=== PATIENT | female | born 1960 | race Caucasian/White ===

== ENCOUNTER 2019-02-17 09:09 | Emergency (ER) | payer MEDICARE ==
[~2019-02-17] VITALS: Ht 160 cm; Wt 52.2 kg
[2019-02-17 09:14] VITALS: BP 137/63
--- NOTE | 2019-02-17 09:24 | PHYS DOC ---
Adult General Chief Complaint Chief Complaint: WRIST PAIN [facility] HPI Patient is a 58 year old right-handed female who presents with complaining of right wrist injury. Patient states she slipped on the bathtub last night and landed on hyperextended right wrist patient denies other injuries and loss of consciousness and complaining of this pain with taking 2 ibuprofen last night. Patient complaining of painful range of motion of right wrist without focal neuro deficit and other injuries. Review of Systems Review of Systems Constitutional: Denies fever or chills [] Eyes: Denies change in visual acuity, redness, or eye pain [] HENT: Denies nasal congestion or sore throat [] Respiratory: Denies cough or shortness of breath [] Cardiovascular: No additional information not addressed in HPI [] GI: Denies abdominal pain, nausea, vomiting, bloody stools or diarrhea [] : Denies dysuria or hematuria [] Musculoskeletal: Denies back pain, reports joint pain [] Integument: Denies rash or skin lesions [] Neurologic: Denies headache, focal weakness or sensory changes [] Endocrine: Denies polyuria or polydipsia [] All other systems were reviewed and found to be within normal limits, except as documented in this note. Allergies Allergies Allergies Coded Allergies Type Severity Reaction Last Updated Verified acetaminophen Allergy Intermediate hives 02/17/19 Yes azithromycin Allergy Intermediate hives 02/17/19 Yes levofloxacin Allergy Intermediate hives 02/17/19 Yes oxycodone Allergy Intermediate [facility] 02/17/19 Yes Physical Exam Physical Exam Constitutional: Well developed, well nourished, mild distress, non-toxic appearance. [] HENT: Normocephalic, atraumatic. Eyes: PERRLA, EOMI, conjunctiva normal, no discharge. [] Neck: Normal range of motion, no tenderness, supple, no stridor. [] Cardiovascular:Heart rate regular rhythm, no murmur [] Lungs & Thorax: Bilateral breath sounds clear to auscultation [] Extremities: Right wrist with moderate edema and tenderness in the radial side with painful range of motion without neurovascular deficit. Neurologic: Alert and oriented X 3, no focal deficits noted. [] Psychologic: Affect normal, judgement normal, mood normal. [] Current Patient Data Vital Signs Vital Signs Date Time Temp Pulse Resp B/P (MAP) Pulse Ox O2 Delivery O2 Flow Rate FiO2 02/17/19 09:14 97.7 69 16 137/63 (87) 97 Room Air 97.7 EKG EKG [] Radiology/Procedures Radiology/Procedures [][facility] [address] [place] [address] IMAGING REPORT Signed PATIENT: ROBBIN BUTLER ACCOUNT: [id number] : 1960 LOCATION: ER AGE: 58 SEX: F EXAM STATUS: PRE ER ORD. PHYSICIAN: ROWAN JOSHI MD REASON: rt wrist pain, pt fell in bathtub last kiera PROCEDURE: WRIST 3V RIGHT EXAM: PA, oblique and lateral views of the right wrist DATE: 02/17/2019 9:21 AM INDICATION: Right wrist pain, fall COMPARISON: No Prior FINDINGS/ IMPRESSION: Transverse distal radial fracture with intra-articular component dorsally is mildly impacted with neutral radial tilt moderate associated soft tissue swelling, with bowing of the pronator fat pad. Decreased bone mineral density. Electronically signed by: Carlos Madden MD (02/17/2019 9:41 AM) [facility] DICTATED and SIGNED BY: CARLOS MADDEN MD DATE: 02/17/19940 Course & Med Decision Making Course & Med Decision Making Pertinent Imaging studies reviewed. (See chart for details) Evaluation of patient in ER showed 58-year-old female patient with a fall and distal radial fracture with extending to joint. Plan to have pain medication in ER. Patient had his sister cleaned and shoulder sling placement and was advised to follow-up with on-call physician for her orthopedic physician at her home [facility]. Dragon Disclaimer Dragon Disclaimer This electronic medical record was generated, in whole or in part, using a voice recognition dictation system. Departure Departure Impression: Primary Impression: Fracture of distal end of right radius Disposition: 01 HOME, SELF-CARE (at 1004) Condition: IMPROVED Referrals: LAURA NIELSON II, MD Patient Instructions: Radial Fracture Additional Instructions: Apply ice on the affected area Follow-up with orthopedic physician physician in 3-5 days Return to ER if not getting better Scripts Hydrocodone/Apap 5-325 (NORCO 5-325 TABLET) 1 Each Tablet 1 TAB PO PRN Q6HRS PRN for PAIN, #15 TAB 0 Refills Prov: ROWAN JOSHI MD 02/17/19 Problem Qualifiers Primary Impression: Fracture of distal end of right radius Encounter type: initial encounter Fracture type: closed Fracture morphology: unspecified fracture morphology Qualified Codes: S52.501A - Unspecified fracture of the lower end of right radius, initial encounter for closed fracture ROWAN JOSHI MD Feb 17, 2019 09:24
--- NOTE | 2019-02-17 09:44 | RAD ---
EXAM: PA, oblique and lateral views of the right wrist DATE: 02/17/2019 9:21 AM INDICATION: Right wrist pain, fall COMPARISON: No Prior FINDINGS/ IMPRESSION: Transverse distal radial fracture with intra-articular component dorsally is mildly impacted with neutral radial tilt moderate associated soft tissue swelling, with bowing of the pronator fat pad. Decreased bone mineral density. Electronically signed by: Carlos Peña MD (02/17/2019 9:41 AM) [facility]
[2019-02-17] MEDS ORDERED: HYDR-3164 PO (10:06)
== END 2019-02-17 10:38 | disposition home or self-care (01) ==
LOC: ER 09:09
DX: S52.501A Unspecified fracture of the lower end of right radius, initial encounter for closed fracture (principal); Z88.6 Allergy status to analgesic agent; Z88.1 Allergy status to other antibiotic agents; Z88.5 Allergy status to narcotic agent; W01.0XXA Fall on same level from slipping, tripping and stumbling without subsequent striking against object, initial encounter; Y93.E8 Activity, other personal hygiene; Y92.091 Bathroom in other non-institutional residence as the place of occurrence of the external cause; Y99.8 Other external cause status
CPT/HCPCS: 29125; 73110; 99283; 99284